=== PATIENT | female | born 1990 | race Hispanic/Latino ===

== ENCOUNTER 2020-06-01 21:40 | Emergency (ER) | payer SELFPAY ==
[2020-06-01] MEDS ORDERED: Adacel (T-DAP) 0.5 ML SYRINGE ONE (22:07)
[2020-06-01] MEDS ORDERED: Bacitracin 1 PK ONE (22:19)
== END 2020-06-01 22:30 | disposition home or self-care (01) ==
LOC: NAV ERS 21:40
DX: S01.01XA Laceration without foreign body of scalp, initial encounter (principal); Z23 Encounter for immunization; W22.8XXA Striking against or struck by other objects, initial encounter
CPT/HCPCS: 12002; 90471; 90715